=== PATIENT | male | born 1965 | race Caucasian/White ===

== ENCOUNTER → 2016-11-04 | Outpatient (REF) | payer OTHER | LOC: M LAB REF 16:28 | PROVIDERS: ATTEND Family Medicine | DX: R74.0 Nonspecific elevation of levels of transaminase and lactic acid dehydrogenase [LDH] (principal) ==

== ENCOUNTER 2017-09-30 10:35 | Day surgery (SDC) | payer BC, OTHER ==
[~2017-09-30] VITALS: Ht 182.9 cm; Wt 100.7 kg
[~2017-09-30 10:35] MED LIST: HYDR-3719 PO; IBUP80TA PO
[2017-09-30] MEDS ORDERED: NS 1,000 ML IV ONE (11:00)
[2017-09-30] MEDS ORDERED: PROPOFOL 200 MG/20 ML VIAL As Ordered ONE (11:41)
[2017-09-30] MEDS ORDERED: LIDOCAINE 2% INJ 100 MG/5 ML SDV (FOR ANES.) As Ordered ONE (11:41)
--- NOTE | 2017-09-30 11:52 | ROOR ---
Patient Name: Gian Gaytan Procedure Date: 09/30/2017 11:33 AM Date of : 1965 Age: 52 Room: [facility] Gender: Male Note Status: Finalized Procedure: Colonoscopy Indications: Screening for colorectal malignant neoplasm Providers: Noble Soto Jr, MD Referring MD: Lobito Hedrick MD Requesting Provider: Medicines: Propofol per Anesthesia Complications: No immediate complications. Procedure: Pre-Anesthesia Assessment: - Prior to the procedure, a History and Physical was performed, and patient medications and allergies were reviewed. The patient is competent. The risks and benefits of the procedure and the sedation options and risks were discussed with the patient. All questions were answered and informed consent was obtained. Patient identification and proposed procedure were verified by the physician and the nurse in the pre-procedure area and in the procedure room. Mental Status Examination: alert and oriented. Airway Examination: normal oropharyngeal airway and neck mobility. Respiratory Examination: clear to auscultation. CV Examination: normal. ASA Grade Assessment: II - A patient with mild systemic disease. After reviewing the risks and benefits, the patient was deemed in satisfactory condition to undergo the procedure. The anesthesia plan was to use moderate sedation / analgesia (conscious sedation). Immediately prior to administration of medications, the patient was re-assessed for adequacy to receive sedatives. The heart rate, respiratory rate, oxygen saturations, blood pressure, adequacy of pulmonary ventilation, and response to care were monitored throughout the procedure. The physical status of the patient was re-assessed after the procedure. The Colonoscope was introduced through the anus and advanced to the cecum, identified by appendiceal orifice and ileocecal valve. The colonoscopy was performed without difficulty. The patient tolerated the procedure well. The quality of the bowel preparation was adequate and good. Findings: The rectum, recto-sigmoid colon, sigmoid colon, descending colon, transverse colon, ascending colon, cecum, appendiceal orifice and ileocecal valve appeared normal. Impression: - No specimens collected. Recommendation: - Discharge patient to home (ambulatory). Noble Soto MD Noble Soto Jr, MD 09/30/2017 11:52:11 AM This report has been signed electronically. Number of Addenda: 0 Note Initiated On: 09/30/2017 11:33 AM Estimated Blood Loss: Estimated blood loss: none.
[2017-09-30 12:22] VITALS: BP 107/65
== END 2017-09-30 12:25 | disposition home or self-care (01) ==
LOC: M OPP 10:35
PROVIDERS: ATTEND Surgery
DX: Z12.11 Encounter for screening for malignant neoplasm of colon (principal); E78.5 Hyperlipidemia, unspecified; M19.90 Unspecified osteoarthritis, unspecified site; Z96.651 Presence of right artificial knee joint; Z88.7 Allergy status to serum and vaccine; Z83.71 Family history of colonic polyps

== ENCOUNTER 2021-10-13 18:17 | Observation (INO) | payer BC, OTHER ==
[~2021-10-13] VITALS: Ht 182.9 cm; Wt 90.9 kg
--- NOTE | 2021-10-13 19:05 | REP ---
INDICATION: CVA. COMPARISON: 02/20/2006 TECHNIQUE: Portable FINDINGS: The technique utilized in obtaining the radiograph has magnified the cardiac silhouette and accentuated the interstitial markings. Additionally, there is marked lung field hypoexpansion further limiting the exam. The superior mediastinal structures are midline. The cardiac silhouette is unremarkable in size, shape, and position. The diaphragmatic surfaces of the lungs are regular, and the costophrenic angles are clear. The pulmonary reddy are clear. The imaged osseous structures are intact. IMPRESSION: There is no acute cardiopulmonary disease. <Electronically signed by Andrew Manuel > 10/13/21 [id number]
[2021-10-13 19:06] LABS: BASO # 0.1 10^3/uL (0.0-0.2); BASO % 0.5 % (0.0-1.0); EOS # 0.1 10^3/uL (0.0-0.5); EOS % 0.8 % (0.0-3.0); HEMATOCRIT 42.9 % (42.0-52.0); HEMOGLOBIN 14.7 g/dl (13.5-17.5); MEAN CORPUSCULAR HEMOGLOBIN 30.9 pg (27.0-33.0); MEAN CORPUSCULAR HGB CONC 34.3 g/dl (32.0-36.5); MEAN CORPUSCULAR VOLUME 90.3 fl (80.0-96.0); MONO # 0.8 10^3/uL (0.0-0.8); MONO % 7.1 % (2.0-8.0); NEUTROPHILS # 6.8 10^3/uL (1.5-8.5); NEUTROPHILS % 63.2 % (36.0-66.0); PLATELET COUNT, AUTOMATED 305 10^3/uL (150-450); RED BLOOD COUNT 4.75 10^6/uL (4.30-6.10); WHITE BLOOD COUNT 10.7 10^3/uL (4.0-10.0)
--- NOTE | 2021-10-13 19:09 | REPVR ---
PROCEDURE INFORMATION: Exam: CT Head Without Contrast Exam date and time: 10/13/2021 6:48 PM Age: 56 years old Clinical indication: Other: Vinnie symptoms; Additional info: CVA - nursing interventions must not delay CT TECHNIQUE: Imaging protocol: Computed tomography of the head without contrast. Radiation optimization: All CT scans at this facility use at least one of these dose optimization techniques: automated exposure control; mA and/or kV adjustment per patient size (includes targeted exams where dose is matched to clinical indication); or iterative reconstruction. Other technique: STROKE PROTOCOL was implemented. COMPARISON: No relevant prior studies available. FINDINGS: Brain: No acute intracerebral abnormality or injury. No acute infarct or intracerebral bleed. Normal brain. [place] Stroke Program Early CT Score (ASPECTS score) = 10, negative for acute intracerebral infarct. Cerebral ventricles: No ventriculomegaly. Paranasal sinuses: Visualized sinuses are unremarkable. No fluid levels. Mastoid air cells: Visualized mastoid air cells are well aerated. Bones/joints: Unremarkable. No acute fracture. Soft tissues: Unremarkable. IMPRESSION: 1. No acute intracerebral abnormality or injury. No acute infarct or intracerebral bleed. 2. Normal brain. 3. [place] Stroke Program Early CT Score (ASPECTS score) = 10, negative for acute intracerebral infarct. Electronically signed by: Kody Barker On 10/13/2021 19:08:54 PM
[2021-10-13 19:17] LABS: INR 1.48; PROTHROMBIN TIME 18.4 SECONDS (12.7-14.5)
[2021-10-13 19:18] LABS: PARTIAL THROMBOPLASTIN TIME 33.9 SECONDS (25.9-37.0)
[2021-10-13 19:37] LABS: BLOOD UREA NITROGEN 12 MG/DL (7-18); CALCIUM LEVEL 8.9 MG/DL (8.5-10.1); CARBON DIOXIDE LEVEL 27 MEQ/L (21-32); CHLORIDE LEVEL 108 MEQ/L (98-107); CREATININE FOR GFR 0.84 MG/DL (0.70-1.30); GLOMERULAR FILTRATION RATE > 60.0 (>56); GLUCOSE, FASTING 89 MG/DL (70-100); POTASSIUM SERUM 4.7 MEQ/L (3.5-5.1); SODIUM LEVEL 141 MEQ/L (136-145)
[2021-10-13] MEDS ORDERED: ATORVASTATIN 20 MG TAB PO STA (20:48)
[2021-10-13 20:49] LABS: RSV AMPLIFICATION NEGATIVE (NEGATIVE)
[2021-10-13] MEDS ORDERED: ASPIRIN 81 MG CHEW TABLET PO ONE (20:50)
[2021-10-13] MEDS ORDERED: IBUP80TA PO (21:19)
[2021-10-13] MEDS ORDERED: HYDR-3716 PO (21:19)
[2021-10-13] MEDS ORDERED: HOME MED LIST COMPLETE! XX SCH (21:20)
[2021-10-13 23:55] VITALS: BP 140/83
[2021-10-14] VITALS (10 sets, daily range): BP systolic 116–137; BP diastolic 73–80; O2SAT 93–98
--- NOTE | 2021-10-14 00:06 | HPEPDOC ---
[facility] Medical History & Physical Date of Admission Oct 13, 2021 Date of Service: Oct 13, 2021 Primary Care Physician: WILFREDO JACKSON M.D. Attending Physician: Polina Bowling History and Physical CHIEF COMPLAINT: Off balance HISTORY OF PRESENT ILLNESS: Patient is a 56-year-old man who presented to the ED on 10/13/2021 after period of slurred and delayed speech, and unsteadiness on his feet. Patient reports that he had just finished grilling outside his home, and walked inside when he suddenly dropped a piece of ham from a plate. Patient reported that he did not believe his speech was slurred, but his said that his speech became slow, almost like he could not find the words, and slurred. also reported that he was wobbly, "almost like he was drunk." She said that he asked him to read the words on a television channel banner, which he could do but was delayed in responding. No facial asymmetry or strength discrepancies were noted, and the patient's brother checked his pulse and it was found to be around 120. When they were preparing to leave their house to come to the hospital, his said he could not buckle his seatbelt or put on his jacket. I asked the if she could think of a timeline of events and she reported the followin:40 PM: Noticed he was off balance and had speech issues. 5:45 PM: Called [id number] who has a medical background, who came over and checked the patient's pulse and was noted to be 120, also did not notice any facial symmetry or strength discrepancies. 6:00 PM: Were in vehicle on light to [facility]. 6:15 PM: Checked in at [facility] ED. still said patient was not answering questions appropriately. When they got here his had him sit in a wheelchair. Noted that her was more cooperative and less joking/stubborn than he normally is. 6:30 PM: was taken back for initial imaging Of note, patient did have COVID-19 a week after Thanksgi and was in quarantine for a period of 20 days. He denied being sedentary in 1 position for more than 8 hours. He denies recent air travel, or long car rides. PAST MEDICAL HISTORY: 1. Hypertriglyceridemia -said Dr Did not consider it high enough to be on medication. 2. COVID-19 a week after Thanksgiving. PAST SURGICAL HISTORY: 1. Left shoulder replacement in January. 2. Knee replacement 12 years ago. 3. 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 SOCIAL HISTORY: Marital status: . 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 REVIEW OF SYSTEMS: CONSTITUTIONAL: Denies fevers, chills. HEENT: Denies any recent head injury, or blurry vision. CARDIOVASCULAR: Denies chest pain, tachycardia. RESPIRATORY: Denies shortness of breath, pain with breathing. GASTROINTESTINAL: Denies nausea, vomiting, diarrhea. GENITOURINARY: Denies dysuria, hematuria. MUSCULOSKELETAL: Denies changes in strength, or perceived weakness. NEUROLOGICAL: Denies lightheadedness, headaches. PSYCHIATRIC: Denies depression, anxiety. ENDOCRINE: Denies increased or decreased thirst. HOME MEDICATIONS: Please see below. PHYSICAL EXAMINATION: VITAL SIGNS: Temperature 97.9, pulse 103, respiratory rate 18, blood pressure 140/80, pulse oximetry 99% on room air. GENERAL APPEARANCE: 56-year-old, male, lying in bed in the ER, no acute distress. HEENT: Head normal, cephalic atraumatic. CARDIOVASCULAR: Regular rate and rhythm, no murmurs, rubs, gallop. LUNGS: Clear to auscultation bilaterally. ABDOMEN: Normoactive bowel sounds, nontender palpation. MUSCULOSKELETAL: Strength normal extremity NEUROLOGICAL: Cranial nerves II through XII grossly intact bilaterally, negative Romberg finger-nose test. NIHSS Score: 0 LABORATORY DATA: See below. IMAGING: Head CT: 1. No acute intracerebral abnormality or injury. No acute infarct or intracerebral bleed. 2. Normal brain. 3. [place] Stroke Program Early CT Score (ASPECTS score) = 10, negative for acute intracerebral infarct. Chest X-ray: 1. There is no acute cardiopulmonary disease. MICROBIOLOGY: Please see below. ASSESSMENT: Patient is a 56-year-old male, who presented to the ED on 10/13/2021, after a period of unsteadiness on his feet, and slurred and delayed speech. Acute imaging has shown no sign of intracranial/cerebrovascular pathologies, and TPA was not given after neurology consult. PLAN: #. TIA -Given that acute imaging showed no evidence of intracranial pathology, this is most likely explanation for patient's altered state. Imaging will be ordered to look for sources of plaque which could be responsible for decreased cerebral blood flow. NIHSS score of 0. -Carotid Doppler ultrasound -Transthoracic echo with bubble study -MRI without contrast -Give 324 mg chewable aspirin -Begin 81 mg aspirin daily CODE STATUS: Full Disposition: Admit for observation Vital Signs Vital Signs Date Time Temp Pulse Resp B/P (MAP) Pulse Ox O2 Delivery O2 Flow Rate FiO2 10/13/21 20:45 87 96 Room Air 10/13/21 18:30 16 131/85 (100) 10/13/21 18:17 97.9 Laboratory Data Labs 24H Laboratory Tests 2 10/13/21 18:43: Immature Granulocyte % (Auto) 0.4, Neutrophils (%) (Auto) 63.2, Lymphocytes (%) (Auto) 28.0, Monocytes (%) (Auto) 7.1, Eosinophils (%) (Auto) 0.8, Basophils (%) (Auto) 0.5, Neutrophils # (Auto) 6.8, Lymphocytes # (Auto) 3.0, Monocytes # (Auto) 0.8, Eosinophils # (Auto) 0.1, Basophils # (Auto) 0.1, Nucleated Red Blood Cells % (auto) 0.0, Prothrombin Time 18.4H, Prothromb Time International Ratio 1.48, Activated Partial Thromboplast Time 33.9, Anion Gap 6L, Glomerular Filtration Rate > 60.0, Calcium Level 8.9 10/13/21 20:02: Coronavirus (COVID-19)(PCR) NEGATIVE, Influenza Type A (RT-PCR) NEGATIVE, Influenza Type B (RT-PCR) NEGATIVE, Respiratory Syncytial Virus (PCR) NEGATIVE CBC/BMP Laboratory Tests 10/13/21 18:43 Home Medications Scheduled Hydrocodone/Acetaminophen (Hydrocodone-Acetamin 7.5-325) 1 Each Tablet, 1 TAB PO BID Scheduled PRN Ibuprofen (Ibuprofen) 800 Mg Tablet, 800 MG PO TID PRN for PAIN LEVEL 1-5 Allergies Coded Allergies: tetanus toxoid, adsorbed (Verified Allergy, Severe, ANGIOEDEMA, 10/13/21) GME ATTESTATION GME ATTESTATION My faculty preceptor for this patient encounter was physically present during the encounter and was fully available. All aspects of the patient interview, examination, medical decision making process, and medical care plan development were reviewed and approved by the faculty preceptor. The faculty preceptor is aware and concurs with the plan as stated in the body of this note and will attest to such by his/her cosignature. ATTENDING NOTE Patient was seen in the emergency department an independent examination was performed. Patient presented to the emergency department for weakness of the left arm and slurred speech. He was outside in the [facility] and was making an entry into his house when he suddenly dropped the ham in the left hand. When he was walking, his noted that he was losing balance. His speech was abnormal in the form of slurred speech. He himself did not appreciate weakness of the extremities or slurred speech. He did not have any sensory symptoms. He did not have blurry vision or diminution of vision of one eye. The episode lasted for some 10 minutes. It completely resolved. Past medical and surgical history: No history of TIAs or strokes. Social history: He does not abuse tobacco or alcohol. Family history: No history of strokes among siblings or parents. Review of systems: He does not have fever, chills, cough, sputum production, hemoptysis, chest pain, shortness of breath, abdominal pain, nausea, vomiting, diarrhea, blood in the stool, melena, abdominal distention, constipation, burning in the urine, frequency of micturition, blood in the urine, headache, blurry vision, joint pains, joint swellings, lymph node enlargement, skin rash, tongue ulcers, sore throat or symptoms of cold. Vitals: Reviewed Examination: General: Averagely nourished. Decubitus: Supine. Oral examination: Normal oral mucosa. Head, neck and ENT: No cervical lymphadenopathy. Eyes: No pallor. No icterus. Skin: No generalized skin rash. Cardiovascular: Regular rhythm. Tachycardia absent. Normal S1. No murmur. Respiratory: Air entry equal on both sides. No crackles, rhonchi or wheeze. No pleural friction rub. Abdominal: No abdominal distention. Tenderness in ___ quadrant. Bowel sounds not exaggerated. Genitourinary: No renal angle tenderness. No suprapubic tenderness. Neurologic: Higher mental functions: Conscious. Alert. Oriented with respect to time, place and person. Memory intact. Language: Normal comprehension, fluency and repetition. Speech: No dysarthria. Cranial nerve examination: Bilateral 3rd, 4th, 6th and 7th nerve examination within normal limits. Motor system examination: Normal tone. No adventitious movements. Strength 5/5 in all extremities. Sensory system examination: Within normal limits. Cerebellar signs: Absent Joints: No tenderness or swelling of joints. Extremities: No extremity swelling. Psychiatric: Normal mood and mood-congruent affect. Labs: Reviewed Imaging reports: Reviewed Assessment and plan: Transient ischemic attack Patient was evaluated by telemetry stroke team. CT head: No evidence of intracranial hemorrhage or hypodensity. Patient was not found to be a candidate for thrombolysis. Chewable aspirin ordered to be administered stat; low-dose daily aspirin to continue. NIH stroke scale scores periodically. Work-up in the form of MRI of brain, duplex ultrasound of bilateral carotid arteries and echocardiogram with bubble study to be performed. Mich Durbin DO Oct 13, 2021 21:56 Polina Bowling Oct 14, 2021 02:38
--- NOTE | 2021-10-14 00:11 | REPVR ---
PROCEDURE INFORMATION: Exam: US Duplex Bilateral Extracranial Arteries Exam date and time: 10/13/2021 11:04 PM Age: 56 years old Clinical indication: Dizziness; Additional info: TIA TECHNIQUE: Imaging protocol: Real-time Duplex ultrasound scan of the bilateral carotid and vertebral arteries combining yung scale, color Doppler and spectral waveform analysis. Bilateral exam. COMPARISON: CT Head without contrast 10/13/2021 6:46 PM FINDINGS: Right common carotid artery: No occlusion or stenosis. Waveforms are normal. Right internal carotid artery: No occlusion or stenosis. Waveforms are normal. Right ICA/CCA ratio: 0.74. Right external carotid artery: No stenosis in the origin. Right vertebral artery: Antegrade flow. Left common carotid artery: No occlusion or stenosis. Waveforms are normal. Left internal carotid artery: No occlusion or stenosis. Waveforms are normal. Left ICA/CCA ratio: 0.89 . Left external carotid artery: No stenosis in the origin. Left vertebral artery: Antegrade flow. IMPRESSION: No carotid arterial stenosis. REFERENCES: SRU CRITERIA. The degree of internal carotid artery stenosis is based on criteria defined by the Society of Radiologists in Ultrasound (SRU). Normal is no stenosis. Mild is less than 50% stenosis. Moderate is 50-69% stenosis. Severe is greater than 69% stenosis to near occlusion. Near occlusion is a markedly narrowed lumen. Total occlusion is no detectable patent lumen. Electronically signed by: Jeronimo Ballesteros On 10/14/2021 00:10:23 AM
--- NOTE | 2021-10-14 00:22 | REPVR ---
PROCEDURE INFORMATION: Exam: MR Head Without Contrast Exam date and time: 10/13/2021 11:29 PM Age: 56 years old Clinical indication: Speech disturbance; Slurred speech; Additional info: TIA TECHNIQUE: Imaging protocol: MR of the head without contrast. COMPARISON: CT Head without contrast 10/13/2021 6:46 PM FINDINGS: No abnormal restriction of diffusion to indicate acute CVA. Midline structures and cerebellar tonsillar position appear normal. Ventricles, cisterns and sulci are symmetric and normal for age. No intracranial mass, midline shift or abnormal extra-axial fluid. No acute intracranial hemorrhage. Minimal punctate foci of increased T2 and flair signal in supratentorial white matter. Optic chiasm and pituitary infundibulum appear normal. Normal vascular flow voids in major intracranial arteries and dural venous sinuses. Paranasal sinuses are normally aerated. Mastoid air cells are normally aerated. Optic globes and orbits are unremarkable. IMPRESSION: No acute or concerning focal intracranial abnormality. Minimal foci of chronic small vessel disease in supratentorial white matter Electronically signed by: Jeronimo Ballesteros On 10/14/2021 00:21:53 AM
--- NOTE | 2021-10-14 00:51 | ECGEPIP ---
[facility] - ED Test Date: 2021-10-13 Pat Name: KARENA MERA Department: Room: - Gender: Male Desktop Support Engineer: TRIXIE : 1965 Requested By: Andres Velasco Order Number: [id number] Reading MD: Andres Guerrero Measurements Intervals [place] Rate: 95 P: 15 CA: 162 QRS: -15 QRSD: 92 T: 28 QT: 354 QTc: 444 Interpretive Statements Normal sinus rhythm NONSPECIFIC T WAVE ABNORMALITY(S) NO PRIORS FOR COMPARISON Electronically Signed on 10-14-2021 0:51:19 EST by Andres Guerrero
[2021-10-14 05:22] LABS: HEMATOCRIT 41.5 % (42.0-52.0); HEMOGLOBIN 14.1 g/dl (13.5-17.5); MEAN CORPUSCULAR HEMOGLOBIN 30.7 pg (27.0-33.0); MEAN CORPUSCULAR VOLUME 90.4 fl (80.0-96.0); PLATELET COUNT, AUTOMATED 264 10^3/uL (150-450); RED BLOOD COUNT 4.59 10^6/uL (4.30-6.10); WHITE BLOOD COUNT 11.2 10^3/uL (4.0-10.0)
[2021-10-14 05:55] LABS: ALBUMIN 3.5 GM/DL (3.2-5.2); ALT/SGPT 35 U/L (12-78); BILIRUBIN,TOTAL 0.5 MG/DL (0.2-1.0); BLOOD UREA NITROGEN 11 MG/DL (7-18); CALCIUM LEVEL 8.7 MG/DL (8.5-10.1); CARBON DIOXIDE LEVEL 27 MEQ/L (21-32); CHLORIDE LEVEL 108 MEQ/L (98-107); CHOLESTEROL LEVEL 161 MG/DL (<200); CHOLESTEROL RISK RATIO 6.708 (<5); CREATININE FOR GFR 0.73 MG/DL (0.70-1.30); GLOMERULAR FILTRATION RATE > 60.0 (>56); GLUCOSE, FASTING 97 MG/DL (70-100); HDL CHOLESTEROL 24 MG/DL (>40); LDL CHOLESTEROL 87 MG/DL (<100); NON-HDL-C 137 MG/DL; POTASSIUM SERUM 3.8 MEQ/L (3.5-5.1); SODIUM LEVEL 140 MEQ/L (136-145); TOTAL PROTEIN 6.6 GM/DL (6.4-8.2); TRIGLYCERIDES LEVEL 249 MG/DL (<150)
[2021-10-14] MEDS ORDERED: ASPIRIN 81 MG CHEW TABLET PO SCH (09:00)
[2021-10-14] MEDS ORDERED: ASPI81CH8 PO (10:25)
[2021-10-14] MEDS ORDERED: ATOR40TA75 PO (10:25)
--- NOTE | 2021-10-14 10:26 | DS.PDOC ---
Discharge Summary General Date of Admission Oct 13, 2021 at 18:18 Date of Discharge 10/14/21 Discharge Summary DISCHARGE DIAGNOSES: TIA COMPLICATIONS/CHIEF COMPLAINT: Tia (Transient Ischemic Attack). HOSPITAL COURSE: Mr. Gaytan, is a 56-year-old male with a past medical history of hypertriglyceridemia presented to the emergency room department on 10/13/2021 for concerns of slurred speech, and ambulatory dysfunction. Patient reports he was outside cooking steaks/time and when he came inside he had dropped a piece of ham from the plate. His felt that he was unsteady on his feet, and thought that he was having slurred speech. On 10/14 patient symptoms had resolved and he was back to his baseline. MRI of the brain was done that showed no acute or concerning focal intracranial abnormality. There was minimal foci of chronic small vessel disease in the subperitoneal white matter. He was s tarted on aspirin as well as atorvastatin therapy and was asked to follow-up with his primary care physician to be referred to a neurologist for a transient ischemic attack (TIA). An echocardiogram done with agitated saline was completed and can be followed up with his primary care physician. He was evaluated by physical therapy and cleared. Of note, the time of discharge he had leukocytosis. There was no evidence of acute infection. He had no fevers, chest x-ray was clear, no urinary comp laints, no abdominal complaints. He was asked to have repeat blood work done to ensure that this had resolved. DISCHARGE MEDICATIONS: Please see below. ALLERGIES: Please see below. PHYSICAL EXAMINATION ON DISCHARGE: VITAL SIGNS: Please see below. General: Lying in bed, no acute distress Head/Neck/Throat: Trachea midline, mucous membranes moist Eyes: Sclera anicteric, PERRLA Thorax: Normal respiratory effort on room air, lungs clear to auscultation bilaterally, no wheezes/rales/rhonchi Cardiovascular: Normal rate, regular rhythm, normal S1, S2; no S3, S4, rubs/gallops/murmurs Abdomen: Bowel sounds present, soft/nontender/nondistended Genitourinary: No CVA tenderness, no Sorensen in place Musculoskeletal: Moving all extremities, no edema Skin: Warm, dry Neurologic: AAOx3. Cranial nerves II to XII intact. Strength in the upper and lower extremities is 5/5. Sensation to gross touch in upper and lower extremities is normal. Cerebellar examination including sxorfv-pr-wlvi, aphg-lt-lvnu was normal. Tandem gait testing was normal. No dysdiadochokinesia. Babinski's is normal. No focal weakness appreciated. LABORATORY DATA: Please see below. IMAGING: Please see imaging PROGNOSIS: Good ACTIVITY: As tolerated DIET: Regular DISPOSITION: Home DISCHARGE INSTRUCTIONS: Patient follow-up with primary care physician and be referred to a neurologist. DISCHARGE CONDITION: Stable. TIME SPENT ON DISCHARGE: 30 minutes. Vital Signs/I&Os Vital Signs Date Time Temp Pulse Resp B/P (MAP) Pulse Ox O2 Delivery O2 Flow Rate FiO2 10/14/21 08:00 97.8 87 17 119/77 (91) 100 Room Air I&O- Last 24 Hours up to 6 AM 10/14/21 06:00 Intake Total 0 ml Output Total 400 ml Balance -400 ml Laboratory Data Labs 24H Laboratory Tests 2 10/13/21 18:43: Immature Granulocyte % (Auto) 0.4, Neutrophils (%) (Auto) 63.2, Lymphocytes (%) (Auto) 28.0, Monocytes (%) (Auto) 7.1, Eosinophils (%) (Auto) 0.8, Basophils (%) (Auto) 0.5, Neutrophils # (Auto) 6.8, Lymphocytes # (Auto) 3.0, Monocytes # (Auto) 0.8, Eosinophils # (Auto) 0.1, Basophils # (Auto) 0.1, Nucleated Red Blood Cells % (auto) 0.0, Prothrombin Time 18.4H, Prothromb Time International Ratio 1.48, Activated Partial Thromboplast Time 33.9, Anion Gap 6L, Glomerular Filtration Rate > 60.0, Calcium Level 8.9 10/13/21 20:02: Coronavirus (COVID-19)(PCR) NEGATIVE, Influenza Type A (RT-PCR) NEGATIVE, Influenza Type B (RT-PCR) NEGATIVE, Respiratory Syncytial Virus (PCR) NEGATIVE 10/14/21 05:03: Nucleated Red Blood Cells % (auto) 0.0, Anion Gap 5L, Glomerular Filtration Rate > 60.0, Calcium Level 8.7, Total Bilirubin 0.5, Aspartate Amino Transf (AST/SGOT) 14, Alanine Aminotransferase (ALT/SGPT) 35, Alkaline Phosphatase 75, Total Protein 6.6, Albumin 3.5, Albumin/Globulin Ratio 1.1, Triglycerides Level 249H, Total Cholesterol 161, LDL Cholesterol 87, Non-HDL Cholesterol (LDL + VLDL) 137, Total HDL Cholesterol 24L, Cholesterol/HDL Ratio 6.708H CBC/BMP Laboratory Tests 10/13/21 18:43 10/14/21 05:03 Discharge Medications Scheduled Aspirin (Children's Aspirin) 81 Mg Tab.chew, 81 MG PO DAILY Atorvastatin Calcium (Atorvastatin Calcium) 40 Mg Tablet, 1 TAB PO DAILY Hydrocodone/Acetaminophen (Hydrocodone-Acetamin 7.5-325) 1 Each Tablet, 1 TAB PO BID, (Reported) Allergies Coded Allergies: tetanus toxoid, adsorbed (Verified Allergy, Severe, ANGIOEDEMA, 10/13/21) JUAN CARLOS WESTFALL M.D. Oct 14, 2021 10:26
[2021-10-14 11:11] LABS: VITAMIN B12 LEVEL 731 PG/ML
[2021-10-14 11:16] LABS: FOLATE 23.4 NG/ML
--- NOTE | 2021-10-14 13:10 | REPVR ---
PROCEDURE INFORMATION: Exam: MRA Head Without Contrast; Arteriography Exam date and time: 10/14/2021 12:30 PM Age: 56 years old Clinical indication: Speech disturbance; Additional info: Speech difficulity TECHNIQUE: Imaging protocol: Magnetic resonance angiography head without contrast. Exam focused on the arteries. COMPARISON: MRI-Brain without Contrast 10/13/2021 11:12 PM FINDINGS: ANTERIOR CIRCULATION: Right internal carotid artery: Intracranial segment is patent with no significant stenosis. No aneurysm. Right middle cerebral artery: No occlusion or significant stenosis. No aneurysm. Right anterior cerebral artery: No occlusion or significant stenosis. No aneurysm. Left internal carotid artery: Intracranial segment is patent with no significant stenosis. No aneurysm. Left middle cerebral artery: No occlusion or significant stenosis. No aneurysm. Left anterior cerebral artery: No occlusion or significant stenosis. No aneurysm. POSTERIOR CIRCULATION: Right vertebral artery: No occlusion or significant stenosis. No aneurysm. Left vertebral artery: No occlusion or significant stenosis. No aneurysm. Basilar artery: No occlusion or significant stenosis. No aneurysm. Right posterior cerebral artery: No occlusion or significant stenosis. No aneurysm. Left posterior cerebral artery: No occlusion or significant stenosis. No aneurysm. IMPRESSION: No stenosis or occlusion. Electronically signed by: Dyana Abbott On 10/14/2021 13:09:55 PM
== END 2021-10-14 14:13 | disposition home or self-care (01) ==
LOC: M ED 18:17 → M ED INP 18:18 → ENRESERV 23:07 → M PCU 23:59
PROVIDERS: ADMIT Internal Medicine; ATTEND Internal Medicine
DX: G45.9 Transient cerebral ischemic attack, unspecified (principal); E78.1 Pure hyperglyceridemia; I67.82 Cerebral ischemia; D72.829 Elevated white blood cell count, unspecified; Z79.899 Other long term (current) drug therapy; Z79.82 Long term (current) use of aspirin; Z79.891 Long term (current) use of opiate analgesic; Z88.7 Allergy status to serum and vaccine; Z86.16 Personal history of COVID-19